=== PATIENT | female | born 1965 | race Hispanic/Latino ===

== ENCOUNTER 2019-07-26 11:54 | Emergency (ER) | payer BC ==
[~2019-07-26] VITALS: Ht 157.5 cm; Wt 77.1 kg
--- NOTE | 2019-07-26 12:25 | NUR ---
CULTURAL LINK:JAMI KINGSTON [id number]
[2019-07-26 13:09] LABS: BASOPHILS # (AUTO) 0.1 (0.0-0.1); BASOPHILS % 0.6 % (0.0-1.0); EOSINOPHILS # (AUTO) 0.2 (0.0-0.4); EOSINOPHILS % 2.1 % (0.0-6.0); HEMATOCRIT 39.1 % (34.2-44.1); HEMOGLOBIN 12.9 g/dL (12.0-16.0); LYMPHOCYTES # (AUTO) 2.1 (1.0-3.2); LYMPHOCYTES % 25.8 % (18.0-39.1); MEAN CORPUSCULAR HEMOGLOBIN 28.5 pg (28-32); MEAN CORPUSCULAR VOLUME 86.5 fL (81-99); MONOCYTES # (AUTO) 0.5 (0.2-0.8); MONOCYTES % 6.6 % (4.4-11.3); NEUTROPHILS # (AUTO) 5.3 (2.1-6.9); NEUTROPHILS % 64.7 % (38.7-80.0); PLATELET COUNT 330 x10e3/uL (140-360); RED BLOOD COUNT 4.52 x10e6/uL (3.6-5.1); RED CELL DISTRIBUTION WIDTH 13.3 % (11.7-14.4)
[2019-07-26 13:18] LABS: INR 0.93; PARTIAL THROMBOPLASTIN TIME 32.6 seconds (23.8-35.5)
[2019-07-26 13:29] LABS: ALANINE AMINOTRANSFERASE 35 IU/L (0-55); ALBUMIN 3.4 g/dL (3.5-5.0); ALKALINE PHOSPHATASE 94 IU/L (40-150); ANION GAP 10.5 mmol/L (8-16); BLOOD UREA NITROGEN 13 mg/dL (7-26); BUN/CREATININE RATIO 19 (6-25); CALCIUM 8.7 mg/dL (8.4-10.2); CARBON DIOXIDE 26 mmol/L (22-29); CHLORIDE 107 mmol/L (98-107); CREATINE KINASE 36 IU/L (29-168); CREATININE, SERUM 0.67 mg/dL (0.57-1.11); EST GLOMERULAR FILTRATION RATE > 60 ML/MIN (60-); GLUCOSE 124 mg/dL (74-118); MAGNESIUM 1.9 MG/DL (1.3-2.1); POTASSIUM 3.5 mmol/L (3.5-5.1); SODIUM 140 mmol/L (136-145)
[2019-07-26 13:30] LABS: BILIRUBIN,URINE NEGATIVE (NEGATIVE); CLARITY,URINE SL CLOUDY (CLEAR); COLOR,URINE YELLOW (YELLOW); KETONES,URINE NEGATIVE (NEGATIVE); LEUKOCYTE ESTERASE ,URINE NEGATIVE (NEGATIVE); NITRITE,URINE NEGATIVE (NEGATIVE); PROTEIN,URINE DIPSTICK NEGATIVE (NEGATIVE); URINE UROBILINOGEN 0.2 mg/dL (0.2 - 1)
[2019-07-26 13:48] LABS: BACTERIA,URINE FEW /HPF; EPITHELIAL CELLS,URINE MODERATE /LPF; RBC,URINE 0-5 /HPF (0-5); WBC,URINE (MAN) 0-5 /HPF (0-5)
--- NOTE | 2019-07-26 14:12 | Diagnostic Imaging Report ---
EXAMINATION: CHEST SINGLE (PORTABLE) INDICATION: ^left facial weakness/numbness ^[id number] ^[id number] COMPARISON: None FINDINGS: AP view TUBES and LINES: None. LUNGS: Lungs are well inflated. Mild reticular opacities in both lung bases may reflect scarring. There is no evidence of pneumonia or pulmonary edema. PLEURA: No pleural effusion or pneumothorax. HEART AND MEDIASTINUM: The cardiomediastinal silhouette is unremarkable.. BONES AND SOFT TISSUES: No acute osseous lesion. Soft tissues are unremarkable. UPPER ABDOMEN: No free air under the diaphragm. IMPRESSION: No acute thoracic abnormality. Mild reticular opacities in both lung bases may reflect scarring. Signed by: Dr. Cynthia Sánchez M.D. on 07/26/2019 2:08 PM
[2019-07-26] MEDS ORDERED: SODIUM CHLORIDE 0.9% 1000ML 1,000 ML IV STA (14:49)
--- NOTE | 2019-07-26 14:53 | Diagnostic Imaging Report ---
Exam: Head CT without contrast History: Headache, facial weakness/numbness Comparison studies: None Technique: Axial images were obtained from the skull base to the vertex. Coronal and sagittal images reconstructed from the axial data. Dose modulation, iterative reconstruction, and/or weight based adjustment of the mA/kV was utilized to reduce the radiation dose to as low as reasonably achievable. Radiation dose: Total DLP: 832.18 mGy*cm. Estimated effective dose: DLP x 0.015 Intravenous contrast: None Findings: Scalp: No abnormalities. Bones: No fractures, blastic or lytic lesions. Brain sulci: Appropriate for age. Ventricles: Normal in size and configuration. No hydrocephalus. Extra-axial spaces: No masses, no fluid collection. Parenchyma: No abnormal densities. No masses, acute hemorrhage, acute or chronic vascular insults. Sellar/suprasellar region: No abnormalities. Craniocervical junction: Patent foramen magnum. No Chiari one malformation. Incidental findings: Asymmetric fullness present in the partially imaged left nasal pharynx. The left middle ear mastoids are opacified. Findings are concerning for mass/neoplasm obstructing the left eustachian tube. Widened left foraminal ovale raises the possibility for perineural tumor/involvement. IMPRESSION: 1. No acute intracranial abnormalities. 2. 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 Recommend ENT consultation and maxillofacial MRI with IV contrast to include imaging of the skull base to further evaluate. Signed by: Dr. Cliff Muro M.D. on 07/26/2019 2:50 PM
[2019-07-26] MEDS ORDERED: SODIUM CHLORIDE 0.9% 1000ML 1,000 ML ONE (14:57)
--- NOTE | 2019-07-26 15:00 | NUR ---
CULTURAL LINK: JAMI AVILA [id number] PATIENT AWARE SHE IS GOING TO CT WITH CONTRAST. ALSO FOUND OUT PATIENT HAS BEEN HAVING LEFT EAR PAIN SINCE MARCH AND HAS GONE TO 3 DIFFERENT DOCTORS AND RECEIVED MULTIPLE MEDICATIONS
--- NOTE | 2019-07-26 16:19 | Diagnostic Imaging Report ---
History: Evaluate nasopharyngeal mass. Comparison studies: Same-day head CT Technique: Axial, coronal and sagittal images from the skull base to the thoracic inlet. Coronal and sagittal images reconstructed from the axial data. Dose modulation, iterative reconstruction, and/or weight based adjustment of the mA/kV was utilized to reduce the radiation dose to as low as reasonably achievable. Intravenous contrast: 100 cc of Isovue-370. Findings: Upper aerodigestive tract Asymmetric soft tissue fullness concerning for neoplasm in the left nasopharynx results result in left eustachian tube obstruction. There is soft tissue fullness measures a proximal 2.0 cm. Additionally, there is subtle asymmetric widening of the adjacent left foramen ovale for which perineural tumor is of concern. The extracranial and petrous segment of the adjacent left carotid artery are patent. These findings are best visualized on the coronal sequence series 601, image 39, axial soft tissue series 3, image 67 and sagittal series 600, image 56. No erosive changes present along the adjacent clivus left pterygoid. The cavernous sinuses appear grossly symmetric without gross mass. No mass or enhancing abnormalities identified within the pterygopalatine fossae. The oropharyngeal palate and lingual tonsils are mildly enlarged. Evaluation of the oral cavity and oropharynx are somewhat limited by streak artifact from dental amalgam. Lymph nodes: A mildly prominent, nonnecrotic left suprahyoid jugular chain lymph node (level IIA) measures up to 1.5 cm in short axis but is otherwise without additional concerning radiographic features. No radiographically significant cervical lymphadenopathy. Vessels: Patent carotid and vertebral arteries. Patent internal jugular veins. Glands (thyroid, parotid and submandibular): Normal in size and symmetric. No masses. Orbits: No abnormalities. Paranasal sinuses: Clear. Temporal bones: Left middle ear mastoids are opacified, as above. Right middle ear mastoids are clear. Cervical spine: Mildly degenerated C5-C6 and C6-C7 discs. Moderate bilateral foraminal stenosis at C6-C7 due to uncovertebral arthrosis. IMPRESSION: 1. 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 2. Associated obstructed eustachian tube with left middle ear/mastoid opacification. 3. Mildly enlarged oropharyngeal tonsils may be reactive. Can correlate with direct visualization. 4. Mildly enlarged left IIA lymph node is otherwise without concerning radiographic features and may be reactive. No other radiographically significant cervical lymphadenopathy. Recommend ENT consultation and dedicated maxillofacial/skull base MRI with IV contrast to further evaluate. Signed by: Dr. Cliff Muro M.D. on 07/26/2019 4:15 PM
--- NOTE | 2019-07-26 17:27 | NUR ---
CULTURAL LINK: JAMI AVILA [id number] DISCUSSED DISCHARGE INSTRUCTIONS, IMPORTANCE OF FOLLOWING UP WITH ON SUNDAY REGARDING TUMOR/MASS. 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 PATIENT VERBALIZED INSTRUCTIONS
[2019-07-26] MEDS ORDERED: IOPAMIDOL 370 MG/ML 200 ML INFUS..BTL INJ ONE (17:43)
[2019-07-26] MEDS ORDERED: SODIUM CHLORIDE 0.9% 50ML 50 ML ONE (17:43)
== END 2019-07-26 17:57 | disposition home or self-care (01) ==
LOC: ER 11:54
DX: D49.0 Neoplasm of unspecified behavior of digestive system (principal); G51.0 Bell's palsy; I10 Essential (primary) hypertension
CPT/HCPCS: 36415; 70450; 70491; 71045; 80053; 81001; 82550; 82553; 83735; 84484; 85025; 85610; 85730; 87086; 93005; 99284; J7030; Q9967

== ENCOUNTER → 2021-07-21 | Outpatient (CLI) | payer BC | LOC: RAD 10:24 | DX: M54.50 Low back pain, unspecified (principal); M79.642 Pain in left hand; M79.641 Pain in right hand; M25.562 Pain in left knee; M25.561 Pain in right knee | CPT/HCPCS: 72110 ==